=== PATIENT | female | born 1960 | race Caucasian/White ===

== ENCOUNTER → 2016-03-22 15:49 | Outpatient (CLI) | payer MEDICAID ==
[2013-10-16 06:47] VITALS: BMI 25.7
[~2016-03-22 15:49] MED LIST: ADVIL200 MG PO; BONTRIL SLOW-R105 MG PO; HYDROCODON-ACE1 EAC7 PO; NORVASC10 MG PO; ZOFRAN4 MG PO
== END | disposition home or self-care (01) ==
LOC: D.MAMMO 08:30
DX: N63 Unspecified lump in breast (principal)

== ENCOUNTER → 2017-04-05 14:00 | Outpatient (CLI) | payer BC ==
[2013-10-16 06:47] VITALS: BMI 25.7
== END | disposition home or self-care (01) ==
LOC: D.MAMMO 14:00
DX: Z12.31 Encounter for screening mammogram for malignant neoplasm of breast (principal)

== ENCOUNTER → 2018-04-11 08:00 | Outpatient (CLI) | payer OTHER ==
[2013-10-16 06:47] VITALS: BMI 25.7
== END | disposition home or self-care (01) ==
LOC: D.MAMMO 08:00
DX: Z12.31 Encounter for screening mammogram for malignant neoplasm of breast (principal)

== ENCOUNTER 2019-05-12 19:00 | Outpatient (CLI) | payer OTHER ==
[2013-10-16 06:47] VITALS: BMI 25.7
== END 2019-05-12 23:59 | disposition home or self-care (01) ==
LOC: D.MAMMO 19:00
PROVIDERS: ATTEND Nurse Practitioner Family
DX: Z12.31 Encounter for screening mammogram for malignant neoplasm of breast (principal)

== ENCOUNTER → 2019-11-09 15:19 | Outpatient (CLI) | payer OTHER ==
[2013-10-16 06:47] VITALS: BMI 25.7
== END | disposition home or self-care (01) ==
LOC: D.US 15:19
PROVIDERS: ATTEND Internal Medicine Hematology & Oncology
DX: M79.604 Pain in right leg (principal)

== ENCOUNTER 2020-07-19 08:45 | Outpatient (CLI) | payer OTHER ==
[2013-10-16 06:47] VITALS: BMI 25.7
== END 2020-07-19 23:59 | disposition home or self-care (01) ==
LOC: D.MAMMO 08:45
PROVIDERS: ATTEND Family Medicine
DX: Z12.31 Encounter for screening mammogram for malignant neoplasm of breast (principal)